=== PATIENT | male | born 1945 | race Caucasian/White ===

== ENCOUNTER 2024-06-08 02:05 | Outpatient (CLI) | payer MEDICARE, SELFPAY ==
--- NOTE | 2024-06-08 15:40 | DI.CT_ITS ---
Exam(s) CT CHEST WO EXAM: CT CHEST WO CLINICAL HISTORY: Cigarette smoker, F17.210. TECHNIQUE: Multi planar reconstructions were performed. CONTRAST MATERIAL: None COMPARISON: No exams were available for comparison FINDINGS: CHEST: LUNGS: There is mildly decreased right hemithoracic volume. There is a large non cavitated infiltrate-mass in right upper lobe and superior segment of right lowe r lobe, this measuring 8 cm AP by 8 cm wide by 6.5 cm craniocaudal and extends from the right hilum o ut to the pleural surface. There appears to be lytic involvement of the adjacent right 3rd and 4th r ibs. Also occlusion of the right upper lobe bronchus by this mass. Also noted in the right lung is a spiculated nodule in the right lobe just above the hemidiaphragm wh ich measures approximately 2.5 x 2.5 cm, also suspicious for neoplasm. There are no significant focal findings in the opposite-left lung. There are no pleural effusions. MEDIASTINUM: The large right-sided mass is continuous into the right hilum consistent with probable r ight hilar adenopathy. There is no adenopathy in the anterior mediastinal fat. However, are abnormall y enlarged pretracheal lymph nodes and azygos lymph node. No true subcarinal adenopathy. Opposite-lef t hilum appears unremarkable. CARDIAC: Heart size is normal. There is no pericardial effusion.Aortic valve is calcified. Diameter of the thoracic aorta is normal. VISUALIZED UPPER ABDOMEN:No obvious adrenal masses.. OSSEOUS: No fractures evident.No vertebral fractures nor lesions.. IMPRESSION: There is a large ominous non cavitated malignant-appearing mass in the right upper lobe and superior segment right lower lobe extending from the right hilum out to the pleural surface. This mass measure s approximately 8 x 8 x 6.5 cm. There is involvement/occlusion of the right upper lobe bronchus as we ll as some narrowing of the right mainstem bronchus. There is associated right hilar and mediastinal adenopathy. There appears to be some lytic involvement of the right 3rd and 4th ribs adjacent to the large mass. There is an additional separate spiculated mass measuring 2.5 x 2.5 cm in the right lung base just ab ove the right hemidiaphragm, also suspicious for malignancy. No suspicious findings in the opposite-left lung. There are no pleural effusions. RADIATION DOSE DELIVERED: 44.56mGy.cm Total DLP DATA REPOSITORY: All CT scans at this facility are submitted to the National Radiology Data Registry (NRDR) Dose Index Registry (DIR) with the [employer] ([employer]). RADIATION OPTIMIZATION: All CT scans at this facility use at least one of these dose optimization te chniques: automated exposure control; mA and/or kV adjustment per patient size (includes targeted exa ms where dose is matched to clinical indication); or iterative reconstruction.
== END 2024-06-08 02:25 ==
LOC: DI 02:05
PROVIDERS: Visit Provider Family Medicine
DX: Z12.2 Encounter for screening for malignant neoplasm of respiratory organs (principal); F17.210 Nicotine dependence, cigarettes, uncomplicated; R91.8 Other nonspecific abnormal finding of lung field
CPT/HCPCS: 71250

== ENCOUNTER 2024-08-18 01:00 | Outpatient (CLI) | payer MEDICARE, SELFPAY ==
--- NOTE | 2024-08-18 | DI.CT_ITS ---
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 Computer aided detection (CAD) was utilized. CONTRAST MATERIAL: Intravenous: Omnipaque 350 Contrast volume:70 ml. COMPARISON: CT CT CHEST WO from 06/08/2024 FINDINGS: Pulmonary parenchyma: Underlying emphysematous changes. Mild overall interval decrease in size of la rge right upper mass which extends from the level of the pleura to the hilum. Measured today at 7.3 x 4.0 by 7.3 cm. Attenuation of the right upper lobe bronchi as well as vasculature appears similar . There is abnormal right upper lobe pleural thickening as well as sclerotic changes of the adjacent ri ght ribs, stable. Nodules in the right lower lobe appear to have increased in size however there is some additional scarring in this area. Right upper lobe peripheral nodules appear stable. Stable ar ea of spiculation above the right diaphragm. There are multiple small nodules seen in the left upper lobe which may represent metastatic disease. Tracheobronchial tree: No bronchiectasis or mucous plugging. Mediastinum and Natalia: stable right paratracheal lymph node with diameter of 2.3 cm. Stable small sub carinal lymph nodes. Stable node to the right of the aortic arch. Pleura: Tiny right pleural effusion. Right apical pleural thickening again noted. Pleural thickenin g is now seen posteriorly in the right lung base with adjacent atelectasis. Small to moderate-sized right pneumothorax seen anteriorly at the right lung base as well as right lung apex.. Heart: The heart is not dilated. Moderate to severe coronary artery calcifications are seen. Aorta: Ascending aorta measures 3.3 cm. Aortic valve is heavily calcified.. Mild atherosclerotic ch anges. Pulmonary arteries: No gross evidence of emboli. Upper abdomen: Abnormally enlarged left para-aortic lymph node measuring 15 x 2.3 cm, only partially included on the field of view. Irregular lesion in the left kidney is partially included on the fie ld of view. Bones: Irregular, thickened cortex of the lateral right 3rd and 4th ribs adjacent to the area of t he mass, similar to prior. No additional suspicious lesions are identified in the [id number] of t he examination.Degenerative changes in the spine. Soft tissues: Unremarkable. IMPRESSION: Small to moderate-sized right pneumothorax. Mild interval decrease in size of large right upper lobe mass. Stable adenopathy. Mild increase in size of right lower lobe pulmonary nodules. Tiny left upper lobe nodules appear to have increased in size and may represent metastatic lesions. Stable pleural thickening and right upper rib lesions. Unexpected findings of pneumothorax were called to Dr. John Almendarez of [facility] hematology oncology. RADIATION DOSE DELIVERED: 279.14mGy.cm Total DLP DATA REPOSITORY: All CT scans at this facility are submitted to the National Radiology Data Registry (NRDR) Dose Index Registry (DIR) with the [employer] ([employer]). RADIATION OPTIMIZATION: All CT scans at this facility use at least one of these dose optimization te chniques: automated exposure control; mA and/or kV adjustment per patient size (includes targeted exa ms where dose is matched to clinical indication); or iterative reconstruction.
[2024-08-18 09:07] LABS: ALT 39 U/L (16-63); AST 31 U/L (15-37); Alkaline Phosphatase 137 U/L (46-116); Anion Gap 9.4 mmol/L (3-11); BUN 16 mg/dL (7-18); Bilirubin, Total 0.31 mg/dL (0.2-1.0); CO2 29.6 mmol/L (21.0-32.0); CREATININE 1.1 mg/dL (0.70-1.30); Calcium 8.8 mg/dL (8.5-10.1); Chloride 101 mmol/L (98-107); Estimated GFR 67.86 (mL/min/1.73m2); Glucose 160 mg/dL (74-106); Potassium 3.9 mmol/L (3.5-5.1); Sodium 140 mmol/L (136-145); Total Protein 7.9 g/dL (6.4-8.2)
[2024-08-18] MEDS: Omnipaque 350 MG/ML 500 ML BTL-Imaging package IJ (09:18)
[2024-08-18] MEDS: Normal Saline - Diluent 50 ML VIAL IJ (09:18)
== END 2024-08-18 01:20 ==
PROVIDERS: PCP Family Medicine; Visit Provider Internal Medicine
DX: C34.02 Malignant neoplasm of left main bronchus (principal)
CPT/HCPCS: 80053; 71260